=== PATIENT | male | born 1970 | race Caucasian/White ===

== ENCOUNTER 2019-10-06 21:17 | Emergency (ER) | payer OTHER ==
[~2019-10-06] VITALS: Ht 182.9 cm; Wt 102.1 kg
[2019-10-06 21:18] VITALS: BP 164/97; Ht 182.9 cm; Wt 102.1 kg
== END 2019-10-06 21:55 | disposition other institution (70) ==
LOC: ED 21:17
DX: Z02.89 Encounter for other administrative examinations (principal)